=== PATIENT | female | born 1945 | race Caucasian/White ===

== ENCOUNTER 2019-01-11 14:34 | Observation (INO) ==
[2019-01-11 15:29] LABS: EOS% 10.6 % (0.0-10.0); HEMATOCRIT 35.1 % (37.0-47.0); HEMOGLOBIN 11.5 g/dL (12.0-16.0); LYMPH% 25.6 % (20.5-51.1); MCHC 32.8 g/dL (33-37); MCV 85.6 FL (81-99); MONO% 8.4 % (1.7-9.3); MPV 10.1 FL (7.4-10.4); NEUT% 55.1 % (42.2-75.2); PLT 219 X1000 (130-400); RDW 14.8 % (11.5-14.5); WBC 6.67 X1000 (4.8-10.8)
[2019-01-11 15:30] LABS: BASO# 0.02 X1000 (0.0-0.2); BASO% 0.3 % (0.0-0.8); EOS# 0.71 X1000 (0.0-0.7); LYMPH# 1.71 X1000 (1.2-3.4); MONO# 0.56 X1000 (0.11-0.59); NEUT# 3.67 X1000 (1.4-6.5)
[2019-01-11] MEDS ORDERED: D50W SYRINGE IV ONE (15:31)
[2019-01-11] MEDS ORDERED: D5W 500 ML IV ONE (15:42)
[2019-01-11 15:46] LABS: ALB/GLOB RATIO 2.1; ALBUMIN 4.2 g/dL (3.5-5.0); CALCIUM 9.3 mg/dL (8.8-10.2); CREATININE 1.5 mg/dL (0.5-0.9); POTASSIUM 4.1 mmol/L (3.5-5.1); TOTAL BILIRUBIN 0.42 mg/dL (0.20-1.00); TOTAL PROTEIN 6.2 g/dL (6.3-8.3)
--- NOTE | 2019-01-11 16:01 | EKG Report ---
Test Performed on : 01/11/2019 2:42:30 PM Test Reason : weakness Blood Pressure : / mmHG Vent. Rate : 087 BPM Atrial Rate : 087 BPM P-R Int : 120 ms QRS Dur : 080 ms QT Int : 370 ms P-R-T Axes : -71 -35 054 degrees QTc Int : 445 ms Unusual P axis and short [place], probable junctional tachycardia. Left axis deviation Abnormal ECG When compared with ECG of 25-MAR-2013 21:22, Junctional rhythm. has replaced Sinus rhythm. Unconfirmed Result
[2019-01-11] MEDS ORDERED: NS 1,000 ML ONE (16:15)
[2019-01-11] MEDS ORDERED: NS 1,000 ML IV ONE (16:16)
--- NOTE | 2019-01-11 17:00 | Diag Imaging Result Doc PS360 ---
EXAM: CT HEAD W/O CONTRAST INDICATION: r/o stroke TECHNIQUE: This exam was performed using automated exposure control, adjustment of mA or kV according to patient size, and/or use of iterative reconstruction technique. COMPARISON: 03/25/2013 FINDINGS: There is stable mild brain atrophy. There is patchy low attenuation in the periventricular white matter suggesting mild microangiopathy. However, it is slightly more prominent than the previous study. There is no definite acute infarct given the limited sensitivity of CT versus MRI. There is no discrete intracranial mass, mass effect, or intracranial hemorrhage. The surrounding soft tissues and bony structures are essentially unremarkable. IMPRESSION: Mild chronic appearing white matter changes. No definite acute intracranial pathology by CT. Electronically signed by Ernst Neal 01/11/2019 4:58 PM
[2019-01-11] MEDS ORDERED: ASPIRIN PO ONE (17:18)
--- NOTE | 2019-01-11 17:28 | PROVIDER DOCUMENTATION ---
This chart was entered by Yesica Posey Scribe, acting as scribe for Emigdio Amaya MD. HPI-General Adult - General Chief Complaint: Weakness Stated Complaint: STROKE SYMPTOMS Time Seen by Provider: 01/11/19 14:43 Source: patient Allergies/Adverse Reactions: Patient Allergies Allergy/AdvReac Type Severity Reaction Status Date / Time No Known Allergies Allergy Verified 01/11/19 15:28 Home Medications: Home Medication List Medication Instructions Recorded Confirmed Last Taken Type Letrozole [Femara] 2.5 mg PO DAILY 03/28/12 01/11/19 03/24/13 History Multivitamin [Multi-Day Vitamins] 1 each PO DAILY 03/28/12 01/11/19 03/25/13 Hi story Oxymetazoline Nasal [place] [Afrin 03/28/12 03/25/13 Unknown History Nasal [place]] Potassium Chloride [Klor-Con M10] 1 tab PO BID 03/28/12 01/11/19 01/01/19 History Triamcinolone Nasal [place] 120 spray .SEE ORDER DIRECTED 03/28/12 01/11/19 Unknown History [Nasacort Aq Nasal [place]] Famotidine 20 mg PO DAILY 03/29/12 01/11/19 03/24/13 History Metformin [Glucophage] 500 mg PO BID 03/29/12 01/11/19 03/25/13 History Venlafaxine HCl [Venlafaxine HCl 37.5 mg PO DAILY 03/29/12 01/11/19 03/28/12 22:00 History ER] 37.5 ATORVAstatin [Lipitor] 40 mg PO HS #0 tablet 03/27/13 01/11/19 Unknown Rx BENAZEpril [Lotensin] 10 mg PO DAILY #0 tablet 03/27/13 01/11/19 Unknown Rx - History of Present Illness -Gen Adult Nature of Presenting Problems: Pt is 73/F presenting to the ED w/ L sided weakness that started about 30 min. 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 Hx of HTN and DM. She sts that all sx have resolved now Location of Pain/Injury: reports: upper extremity (L sided) Pain Radiation: reports: arm(s) (l arm) Quality of Pain: reports: other (weakness) Severity: reports: moderate Onset/Duration: reports: 1/2 hour ago Timing: reports: gone now Context/Activities at Onset: reports: none Modifying Factors: improves with: nothing Associated Symptoms: reports: denies symptoms, weakness Similar Symptoms Previously?: No Recently seen or treated by another doctor?: No Review of Systems - Adult - REVIEW OF SYSTEMS - ADULT Constitutional: reports: no symptoms reported Eyes: reports: no symptoms reported Ears, Nose, Mouth & Throat: reports: no symptoms reported Cardiovascular: reports: no symptoms reported Respiratory: reports: no symptoms reported Gastrointestinal: denies: abdominal pain, nausea, vomiting Genitourinary: reports: no symptoms reported Musculoskeletal: reports: no symptoms reported Integumentary: reports: no symptoms reported Neurological: reports: no symptoms reported. denies: dizziness/vertigo, headache/migraines Psychiatric: reports: no symptoms reported Endocrine: reports: no symptoms reported Hematologic/Lymphatic: reports: no symptoms reported Allergic/Immunologic: reports: no symptoms reported All Other Systems: Reviewed and Negative Past History - Adult - PAST MEDICAL HISTORY-ADULT Review of Records: reports: Old Records Reviewed, Nursing Assessment Review, Medications Reviewed, Social history reviewed & non-contributory. Major Childhood Illnesses: reports: denies history Cardiovascular: reports: denies history Respiratory: reports: denies history Gastrointestinal: reports: denies history Obstetrical/Gynecological: reports: denies history Genitourinary: reports: denies history Musculoskeletal: reports: denies history Neurological: reports: denies history Psychiatric: reports: denies history Endocrine/Immune: reports: denies history Other Conditions: reports: denies history - SOCIAL HISTORY Smoking: denies, non-smoker Substance Use: none/never Living Situation: family Physical Exam-General - PHYSICAL EXAM-ADULT Initial Vital Signs Reviewed: Yes - CONSTITUTIONAL General Appearance: appears well, alert, no apparent distress, other (pt sts that all sx have resolved at this time.) - EYES Eyes: PERRL/EOMI, pink conjunctivae - HEAD, EARS, NOSE, MOUTH & THROAT HENMT: normocephalic/atraumatic, moist mucous membranes, normal ENT inspection - NECK Neck: supple - RESPIRATORY Respiratory: lungs clear - GASTROINTESTINAL (ABDOMEN) Abdominal Exam: non tender, soft - MUSCULOSKELETAL Back Exam: normal inspection Extremity: normal range of motion, non-tender, normal gait, normal inspection - SKIN Integumentary: normal color, warm/dry - NEUROLOGIC Neurologic: grossly normal - PSYCHIATRIC Psych/Mental Status: normal mood/affect, normal thought content, normal thought process, oriented x 3 Progress - PLAN OF CARE/RESULTS Progress/Plan/Lab Results: Vital Signs - 8 hr 01/11/19 14:35 Temperature 97.4 F L Pulse Rate 91 H Respiratory Rate 16 Blood Pressure 160/77 O2 Sat by Pulse Oximetry 98 Laboratory Results - last 24 hr 01/11/19 01/11/19 15:05 15:14 WBC 6.67 RBC 4.10 L Hgb 11.5 L Hct 35.1 L MCV 85.6 MCH 28.0 MCHC 32.8 L RDW Std Deviation 14.8 H Plt Count 219 MPV 10.1 Immature Gran % (Auto) 0.0 Neut % (Auto) 55.1 Lymph % (Auto) 25.6 [place] % (Auto) 8.4 Eos % (Auto) 10.6 H Baso % (Auto) 0.3 Immature Gran # (Auto) 0.00 Neut # (Auto) 3.67 Lymph # (Auto) 1.71 [place] # (Auto) 0.56 Eos # (Auto) 0.71 H Baso # (Auto) 0.02 POC Glucose 63 L Orders Category Date Time Status CT HEAD W/O CONTRAST [CT] Stat Exams 01/11/19 14:40 Ordered CBC WITH DIFF [HEME] Stat Lab 01/11/19 15:05 Completed COMPREHENSIVE METABOLIC PANEL [CHEM] Stat Lab 01/11/19 15:05 Received TROPONIN T Stat Lab 01/11/19 15:05 Received URINALYSIS [URINALYSIS] Stat Lab 01/11/19 14:43 Uncollected Dextrose 50% Syringe [D50w Syringe] Med 01/11/19 15:31 Discontinued 50 ml IV NOW ONE EKG [EKG] Stat Ther 01/11/19 14:43 Ordered Result Diagrams: 01/11/19 15:05 01/11/19 15:05 - EKG 1 Time of EKG reading by physician:: 14:42 EKG Read and Signed by:: Emigdio Amaya EKG Interpretation (*Must complete 3 of following elements*): Abnormal (Unusual P axis and short [place], probable junctional tachycardia. Left axis deviation. Abnormal) Rate: 87 Rhythm: probable junctional tachycardia [place]: left QRS: normal CO Interval: normal - XRAY 1 XRAY: Bilateral XRAY Study: Chest Impression: Normal (EXAM: CT HEAD W/O CONTRAST INDICATION: r/o stroke TECHNIQUE: This exam was performed using automated exposure control, adjustment of mA or kV according to patient size, and/or use of iterative reconstruction technique. COMPARISON: 03/25/2013 FINDINGS: There is stable mild brain atrophy. There is patchy low attenuation in the periventricular white matter suggesting mild microangiopathy. However, it is slightly more prominent than the previous study. There is no definite acute infarct given the limited sensitivity of CT versus MRI. There is no discrete intracranial mass, mass effect, or intracranial hemorrhage. The surrounding soft tissues and bony structures are essentially unremarkable. IMPRESSION: Mild chronic appearing white matter changes. No definite acute intracranial pathology by CT. Electronically signed by Ernst Neal 01/11/2019 4:58 PM 01/11/191657 Interpreting Physician: Ernst Neal MD Dictated Date/Time: 01/11/193 cc: Emigdio Amaya MD; Jose Padgett MD) - CT/MRI 1 CT Study: Head Impression: Normal, See EMR Report ([facility] - [address] [place] [address], [address] [address] [facility] - [address] [place] [address] Department of Imaging Patient: THOMAS SANTOS Date: 01/11/19#: [id number] : 5ADM Status: [facility]#: [id number] Age/Sex: 73/FRoom/Bed: Loc: ED Ordering Physician: Emigdio Amaya MD Family Physician: Jose Padgett MD Reason for Procedure: r/o stroke Signed EXAM: CT HEAD W/O CONTRAST INDICATION: r/o stroke TECHNIQUE: This exam was performed using automated exposure control, adjustment of mA or kV according to patient size, and/or use of iterative reconstruction technique. COMPARISON: 03/25/2013 FINDINGS: There is stable mild brain atrophy. There is patchy low attenuation in the periventricular white matter suggesting mild microangiopathy. However, it is slightly more prominent than the previous study. There is no definite acute infarct given the limited sensitivity of CT versus MRI. There is no discrete intracranial mass, mass effect, or intracranial hemorrhage. The surrounding soft tissues and bony structures are essentially unremarkable. IMPRESSION: Mild chronic appearing white matter changes. No definite acute intracranial pathology by CT. Electronically signed by Ernst Neal 01/11/2019 4:58 PM 01/11/198 Interpreting Physician: Ernst Neal MD Dictated Date/Time: 1654 cc: Emigdio Amaya MD; Jose Padgett MD) - CONSULTS/PCP/HOSPITALIST Notification #1 *Consult/PCP/Hospitalist*: Xi for Dr López Time Discussed: 17:31 Consult Disposition: Will see in ED, Admit Departure - Departure Date of Disposition Decision: 01/11/19 Time of Disposition Decision: 17:27 DIAGNOSIS: TIA (transient ischemic attack), Renal insufficiency Disposition: ADMITTED INPATIENT 09 Certified Medical Emergency: Emergent Condition: Fair Referrals and Follow-Ups: Jose Pdagett MD [Primary Care Provider] - - Critical Care Note This patient required my direct & personal management of CC.: No Attestation - Physician/ ALEJANDRINA Attestation Patient care was provided by Advanced Practice Provider:: No The physician spent face to face time with patient:: Yes Advanced Practice Provider documentation review:: Supervising physician onsite and consulted in the evaluation and care of this patient. The physician did have a face to face encounter with the patient. This chart was documented by the indicated scribe, (Yesica Posey, Simran) and accurately reflects the services I performed and decisions made by me, Emigdio Amaya MD, as attested by the provider's signature.
[2019-01-11 18:23] LABS: INR 0.93; PROTIME 12.6 Seconds (11.0-16.0); PTT 24.9 Seconds (22.3-41.8)
--- NOTE | 2019-01-11 18:25 | Diag Imaging Result Doc PS360 ---
EXAM: CHEST-1 VIEW INDICATION: possible stroke TECHNIQUE: One view COMPARISON: 03/25/2013 FINDINGS: There is a calcified granuloma at the left lung base and a few small calcified granulomata at the right lung apex. The lungs are grossly clear. There is no discrete pleural fluid collection or pneumothorax. The cardiomediastinal silhouette and central vasculature are grossly unremarkable. IMPRESSION: No evidence of acute pathology by plain radiograph. Electronically signed by Ernst Neal 01/11/2019 6:23 PM
[2019-01-11 18:33] LABS: URINE SOURCE VOIDED
[2019-01-11] MEDS ORDERED: ZOFRAN IV PRN (18:54)
[2019-01-11] MEDS ORDERED: TRIAMCINOLONE SCH (18:54)
[2019-01-11 19:03] LABS: BILIRUBIN URINE NEGATIVE (NEGATIVE); BLOOD URINE TRACE (NEGATIVE); COLOR YELLOW; GLUCOSE URINE 150 mg/dL (NEGATIVE); KETONE URINE NEGATIVE (NEGATIVE); LEUKOCYTES URINE LARGE (NEGATIVE); NITRITE URINE NEGATIVE (NEGATIVE); PROTEIN URINE 50 mg/dL (NEGATIVE); SP GRAVITY URINE 1.015; TURBIDITY URINE HAZY (CLEAR); UROBILINOGEN URINE 2 mg/dL (NORMAL)
[2019-01-11 19:08] LABS: UR EPITHELIAL CELLS <10 /HPF (<10); URINE BACTERIA 4+ /HPF; URINE RBC <10 /HPF (<10); URINE WBC TNTC /HPF (<10)
--- NOTE | 2019-01-11 20:18 | HISTORY AND PHYSICAL ---
PRIMARY CARE PHYSICIAN: Jose Padgett MD CHIEF COMPLAINT: Left-sided weakness and left-sided facial drooping with slurred speech that began approximately 30 minutes prior to arrival, that resolved after arriving to the emergency room. HISTORY OF PRESENTING ILLNESS: This is a 73-year-old female who presents to [facility], with family after she was sitting outside on her porch. Her son was outside with her and noticed that she had left-sided facial drooping, had slurred speech and weakness in her left arm and leg, so he brought her to the emergency room. By the time she arrived to the emergency room her symptoms had resolved. She was given an aspirin 325 mg p.o. x1 in the emergency room. She is not noted at this time to have any deficits or any left-sided facial drooping or slurred speech. We did a CT of her head that showed mild chronic-appearing white matter changes, but no definite acute intracranial pathology by CT. She will be admitted for further evaluation and treatment. PAST MEDICAL HISTORY: TIA, hypertension, diabetes type 2, anxiety, chronic allergic rhinitis and breast cancer. PAST SURGICAL HISTORY: Gastric bypass in 2005, hysterectomy, port placement and removal, and a left mastectomy. FAMILY HISTORY: Reviewed and noncontributory. SOCIAL HISTORY: She currently lives with family. Denies any tobacco, alcohol or illicit drug use. ALLERGIES: She has no known drug allergies. HOME MEDICATIONS: She takes Lipitor 40 mg p.o. at bedtime; benazepril 10 mg p.o. daily, will be held; famotidine 20 mg p.o. daily; Femara 2.5 mg p.o. daily; metformin 500 mg p.o. b.i.d.; multivitamin p.o. daily; potassium 10 mEq p.o. b.i.d.; Nasacort nasal spray daily; venlafaxine 37.5 mg p.o. daily. LABORATORY DATA: White blood cell count of 6.67, hemoglobin 11.5, hematocrit 35.1, platelets 219,000. Sodium 143, potassium 4.1, chloride 101, CO2 is 24, BUN of 19, creatinine 1.5, glucose 80. Troponin was less than 0.010. DIAGNOSTIC DATA: Head CT showed mild chronic-appearing white matter changes. No definite acute intracranial pathology by CT. EKG showed junctional tachycardia at 87 with an unusual P axis and short P-R. REVIEW OF SYSTEMS: She denied any fever, chills, blurred vision, dizziness, chest pain, coughing, shortness of breath. She did have some left-sided facial drooping, slurred speech, left upper and lower extremity weakness. Denied any chest pain, coughing, shortness of breath, abdominal pain, constipation, diarrhea, burning or hurting with urination. PHYSICAL EXAMINATION: On arrival she had a temperature of 97.4 degrees, pulse 91, respirations 16, blood pressure 160/77, saturating 98% on room air. GENERAL: This is a 73-year-old female who is lying in the bed and answers questions appropriately. HEENT: Normocephalic, atraumatic. Normal ENT inspection. Oropharynx and nares are clear. Eyes: Pupils are equal, round and reactive to light and accommodation. Extraocular movements are intact. NECK: Normal inspection. Normal range of motion. LUNGS: Clear to auscultation bilaterally, with equal lung expansion and chest wall movement. HEART: Regular rate and rhythm. No murmurs, rubs or gallops. ABDOMEN: Soft, nontender, nondistended. Bowel sounds are present x4 quadrants. MUSCULOSKELETAL: She had 5/5 strength x4 extremities. NEUROLOGICAL: The cranial nerves 2-12 are grossly intact. No focal neurological deficits are noted. ASSESSMENT: 1. Transient ischemic attack, now resolved. 2. Acute kidney injury. 3. Hypertension. 4. Diabetes type 2. PLAN: She will be admitted to the medical unit. I am going to allow for some permissive hypertension. We will place on telemetry. Check a carotid ultrasound and an echocardiogram in the a.m. We will check a CBC, BMP and a lipid panel in the a.m. Continue home medications as previously identified. Place on SCDs for DVT prophylaxis. Place on diabetic diet. Neurologic checks per protocol. Further orders after seen by attending. Dictated by DEWAYNE Trevino for Jorge Elliott MD cc: DEWAYNE Trevino MD Hiteshri S. Bhavsar, MD
--- NOTE | 2019-01-11 20:29 | HISTORY AND PHYSICAL ---
ADDENDUM: HISTORY OF PRESENT ILLNESS: Ms. Willis was seen today in the emergency department. She presented because of mild facial drooping on the left side of her face and difficulty bringing out her words, which lasted for a few minutes. The son was with her when this happened and he brought her with a concern of possible stroke. Ms. Willis has a history of hypertension, previous CVA, diabetes mellitus, and dyslipidemia. Upon presentation, she was evaluated and was found to have a blood pressure of 160/77. Her physical exam is quite unremarkable with no neurological deficit. Her speech is now back to normal and there is not any asymmetry in the face. Her labs have also been reviewed. CBC is unremarkable, except for mild normocytic anemia. Chemistry shows creatinine of 1.5, patient has a baseline of 1.1. CT scan of the head shows mild chronic-appearing, white matter changes, no acute pathology. A chest x-ray shows no acute pathology. EKG shows a normal sinus rhythm with normal axis, normal individual waves, no ST-segment abnormality, normal QT interval. ASSESSMENT/PLAN: 1. Transient episode of difficult speech associated with mild facial drooping on the left, concerning for transient ischemic attack. The patient currently does not seem to have any neurological deficits. She has a previous history of TIA before and also has risk factors, so we are going to admit her and do a stroke workup. 2. Diabetes mellitus. We are going to discontinue the metformin and start the patient on insulin for now. 3. Hypertension. Controlled. 4. Acute on chronic renal failure. Creatinine is up to 1.5, from a baseline of 1.1. We are going to withhold the LUNA inhibitor, hydrate the patient overnight, and recheck on the labs in the morning. 5. History of breast cancer, status post left breast mastectomy and reconstruction surgery. The patient had chemotherapy and all of the workup. Follows up with Dr. Rand. Please refer to the details of the H P in the chart, which has been dictated by the CV/CVN CV TSC SYSTEM OPERATOR. cc: Jorge Elliott MD
[2019-01-11] MEDS: KLOR-CON PO SCH (20:59)
[2019-01-11] MEDS ORDERED: GLUCOPHAGE PO SCH (21:00)
[2019-01-11] MEDS ORDERED: LIPITOR PO SCH (21:00)
[2019-01-12] MEDS: PEPCID PO SCH ×2 (00:16→08:41)
[2019-01-12] MEDS: TYLENOL PO PRN ×3 (03:08→14:54)
[2019-01-12 07:08] LABS: BASO# 0.01 X1000 (0.0-0.2); BASO% 0.2 % (0.0-0.8); EOS# 0.55 X1000 (0.0-0.7); EOS% 8.3 % (0.0-10.0); HEMOGLOBIN 10.7 g/dL (12.0-16.0); LYMPH# 1.32 X1000 (1.2-3.4); LYMPH% 19.8 % (20.5-51.1); MCH 28.2 PG (27-31); MCHC 32.4 g/dL (33-37); MCV 86.8 FL (81-99); MONO# 0.49 X1000 (0.11-0.59); MONO% 7.4 % (1.7-9.3); MPV 10.1 FL (7.4-10.4); NEUT# 4.28 X1000 (1.4-6.5); NEUT% 64.3 % (42.2-75.2); PLT 182 X1000 (130-400); RDW 14.7 % (11.5-14.5); WBC 6.65 X1000 (4.8-10.8)
[2019-01-12 07:24] LABS: CALCIUM 8.6 mg/dL (8.8-10.2); CREATININE 1.1 mg/dL (0.5-0.9); POTASSIUM 3.6 mmol/L (3.5-5.1)
[2019-01-12] MEDS: KLOR-CON PO SCH (08:41)
[2019-01-12] MEDS ORDERED: THERA M PLUS PO SCH (09:00)
[2019-01-12] MEDS ORDERED: FEMARA PO SCH (09:00)
[2019-01-12] MEDS ORDERED: ASPIRIN PO SCH (09:00)
[2019-01-12] MEDS ORDERED: EFFEXOR XR PO SCH (09:00)
--- NOTE | 2019-01-12 11:00 | Diag Imaging Result Doc PS360 ---
EXAM: MRI BRAIN W/WO CONTRAST 01/12/2019 HISTORY: TIA TECHNIQUE: T1 sagittal and axial and post gadolinium-enhanced axial with coronal reformation, T2, FLAIR, DWI axial and coronal gradient echo. COMMENT: The current study is compared with the previous examination of 03/27/2013. 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 The ventricular system is generally somewhat more distended than it was at the time the previous study. There is periventricular white matter hyperintensity with scattered punctate subcortical and periventricular foci of hyperintensity which are somewhat more numerous than on the previous study. There is no evidence of mass effect bleed or abnormal extra-axial fluid collection. There is no evidence of restricted diffusion. No evidence of abnormal gadolinium enhancement is present. IMPRESSION: Slightly worsened chronic microvascular white matter disease. Increased prominence of the ventricular system which may be related to increasing atrophy. The possibility of normal pressure hydrocephalus cannot be entirely excluded however. Electronically signed by Dwight Wiggins 01/12/2019 10:58 AM
--- NOTE | 2019-01-12 11:02 | Diag Imaging Result Doc PS360 ---
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 Both posterior communicating arteries are patent. Otherwise, there is no evidence of aneurysm or major branch occlusion. Fewer of the peripheral branches of the right middle cerebral artery are visible compared to the left. IMPRESSION: No evidence of major branch occlusion. Electronically signed by Dwight Wiggins 01/12/2019 11:00 AM
--- NOTE | 2019-01-12 11:05 | Diag Imaging Result Doc PS360 ---
EXAM: MRA NECK W/CONT 01/12/2019 HISTORY: TIA TECHNIQUE: Contrast enhanced MRA with 3-D MIPS COMMENT: The common carotid and right brachiocephalic arteries are patent. The left subclavian artery is not well demonstrated proximally and there may be a stenotic lesion distal to the takeoff of the left vertebral artery. No significant abnormality is present in the right internal carotid artery. It is somewhat tortuous. There is an apparent plaque in the proximal left internal carotid artery. This does not appear to be associated with a significant degree of stenosis however correlation with carotid Doppler ultrasound is recommended. IMPRESSION: Atherosclerotic plaque in the proximal left internal carotid artery. Apparent stenosis in the left subclavian artery. Electronically signed by Dwight Wiggins 01/12/2019 11:03 AM
[2019-01-12 11:46] VITALS: BP 181/79
[2019-01-12] MEDS ORDERED: PNEUMOVAX 23 IM ONE (14:43)
--- NOTE | 2019-01-13 07:57 | ECHO REPORT ---
ORDER DATE: 01/12/2019 MEASUREMENTS: 1. Septal thickness 1.1. 2. Left ventricular internal diameter in diastole 4.8. 3. Posterior wall thickness 0.9. 4. Aortic root 3.0. 5. Left atrium 3.6 SUMMARY: 1. Technically difficult study due to limited acoustic window quality. Intravenous echo contrast agent Optison was utilized to enhance endocardial definition. 2. Aortic valve is trileaflet and opens normally on 2-dimensional images. Peak gradient across aortic valve was less than 5 mmHg. Mild mitral annular calcification is demonstrated. There is very mild mitral regurgitation. Tricuspid and pulmonic valves are without evidence of structural abnormality with mild tricuspid regurgitation and trace pulmonic insufficiency. The estimated systolic PA pressure by Doppler is 40 mmHg suggesting mild pulmonary hypertension. The aortic root is normal in size. 3. Normal left ventricular dimensions suggested. Estimated left ejection fraction appears to be at least 60%. No regional wall motion abnormalities are evident. Left atrium, right atrium, right ventricle are normal in size with grossly preserved right ventricular systolic function. 4. No pericardial effusion. 5. Inferior vena cava not well demonstrated. CONCLUSIONS: 1. Technically difficult study. 2. Mild mitral annular calcification with very mild mitral regurgitation. 3. Mild tricuspid regurgitation with mild pulmonary hypertension by Doppler. 4. Estimated left ejection fraction at least 60% without regional wall motion abnormality evident. cc: MD Xi Krishnan CRNP
--- NOTE | 2019-01-13 13:18 | DISCHARGE SUMMARY ---
ADMISSION DATE: 01/11/2019 DISCHARGE DATE: 01/12/2019 DISPOSITION: Home. FOLLOW-UP: Will be with patient's PCP, Dr. Padgett. CONSULTATION DURING THIS ADMISSION: None. INVASIVE PROCEDURES DONE DURING THIS ADMISSION: None. IMAGING STUDIES OF SIGNIFICANCE: 1. A CT scan of the head was done which showed mild chronic appearing white matter changes. A chest x-ray shows no evidence of acute pathology. A brain MRA showed no evidence of major branch occlusion. An MRI of the brain shows slightly worsened chronic microvascular white changes. 2. A neck MRA shows atherosclerotic plaque in the proximal left internal carotid. 3. A Doppler carotid ultrasound shows 0 to 39 stenosis in both carotid of non-hemodynamic significance. ADMISSION DIAGNOSES: 1. Transient episode of difficulty with speech associated with mild facial droop, concerning for TIA. 2. Diabetes mellitus. 3. Hypertension. 4. Acute on chronic renal failure. 5. History of breast cancer. DIAGNOSES AT THE TIME OF DISCHARGE: 1. Transient episode of neurological deficit which has completely resolved with some unremarkable acute findings on an MRI, all consistent with a TIA. Patient is currently neurologically intact. 2. Diabetes mellitus, controlled on insulin. 3. Acute on chronic renal failure. Patient creatinine is back to baseline 1.1. 4. Clinical volume depletion. The patient has been adequately fluid resuscitated. 5. History of breast cancer status post left breast mastectomy and reconstruction surgery, follows up with Dr. Rand. DISCHARGE MEDICATIONS: 1. Multivitamin 1 tab daily. 2. Letrozole 2.5 p.o. daily. 3. Famotidine 20 mg p.o. daily. 4. Metformin 500 b.i.d. 5. Atorvastatin 40 mg p.o. at bedtime. 6. Benazepril 10 mg p.o. daily. 7. Carvedilol 6.25 p.o. b.i.d. PRESENTING COMPLAINT: Left-sided weakness, left facial droop, difficulty talking. HISTORY OF PRESENTING COMPLAINT: Ms. Willis is a 73-year-old female with a history of hypertension, diabetes, previous TIAs, came to the emergency department because of transient episode of slurred speech and left-sided facial drooping. Upon presenting to the emergency department, patient was neurologically intact. However, because of her risk factors, it was deemed necessary admission for stroke workup. HOSPITAL COURSE: Ms. Willis was admitted to the medical floor and imaging studies including an MRI and MRA of the brain and neck were done. All came back without any acute stroke. However, there were chronic changes on the imaging studies. The patient also had a carotid ultrasound which did not show any significant hemodynamic compromising stenosis. This morning, she refers to be doing well. Her daughter in law was at the bedside at the time of the encounter. She denies any neurological complaints. Her current vitals have been reviewed. Blood pressure is 181/79, pulse of 70, respirations 20, temperature 98.0 degrees. Carvedilol has been added to her current regimen for better blood pressure control. She is being discharged in stable condition. Ms. Willis is advised to follow up with her primary care doctor. She is also advised to maintain adequate hydration during the summertime. All the discharge instructions have been discussed with her as well as with her daughter in law. Both of them expressed understanding. Her granddaughter was also at the bedside at the time of the encounter. TIME SPENT: The time spent for discharge is 37 minutes. cc: MD Jose Lundberg MD
== END 2019-01-12 15:27 | disposition home or self-care (01) ==
LOC: 1N 14:34 → ED 14:34
PROVIDERS: ATTEND Internal Medicine
CPT/HCPCS: 70450; 70544; 70548; 70553; 71010; 71045; 80048; 80053; 80061; 81001; 82948; 83721; 84484; 85025; 85610; 85730; 90732; 93005; 93306; 93880; A9270; A9579; C8929; J2405; J7030; J7060; Q9957; XXXXX

== ENCOUNTER 2019-04-03 11:44 | Observation (INO) ==
--- NOTE | 2019-04-03 12:16 | PROVIDER DOCUMENTATION ---
HPI-Musculoskeletal Pain/Inj - GENERAL Chief Complaint: Hip Injury Stated Complaint: Fall Time Seen by Provider: 04/03/19 12:05 Source: patient - HX OF PRESENT ILLNESS-MUSKULOSKELTAL Nature of Presenting Problem: 74 yr old F, presents after a fall. She was walking back up her driveway from the mailbox when her toe caught on something and she fell. She denies LOC despite hitting her head; has a small hematoma, but no abrasion. Able to ambulate with assistance. Severity in ED: mild Onset/Duration: 4-6 hours ago Timing: still present Any recent injury?: No Locality of Occurance: Home Similar Symptoms Previously?: No - FALL INJURY Location of Pain/Injury: reports: head, lower extremity Pain Radiation: reports: no radiation Reason for Fall: reports: tripped Symptoms prior to fall:: reports: none Loss of Consciousness: no loss of consciousness Injury Associated Symptoms: reports: joint pain, trouble walking - LOWER EXTREMITY PAIN/INJURY Lower Extremities Pain: hip: left (pain, swelling), leg: left Review of Systems - Adult - REVIEW OF SYSTEMS - ADULT Constitutional: reports: no symptoms reported Eyes: reports: no symptoms reported Ears, Nose, Mouth & Throat: reports: no symptoms reported Cardiovascular: reports: no symptoms reported Respiratory: reports: no symptoms reported Gastrointestinal: reports: no symptoms reported Musculoskeletal: reports: see HPI, joint pain, joint swelling Neurological: reports: no symptoms reported Psychiatric: reports: no symptoms reported Past History - Adult - PAST MEDICAL HISTORY-ADULT Review of Records: reports: Nursing Assessment Review Endocrine/Immune: reports: Diabetes Diabetes Type: Type 2 Physical Exam-Injury Related - Physical Exam-Injury Related Initial Vital Signs Reviewed: Yes General Appearance: alert, no apparent distress Eyes: PERRL/EOMI Head, Ears, Nose, Mouth & Throat: normocephalic/atraumatic, moist mucous membranes Respiratory: chest non-tender, lungs clear Cardiovascular: regular rate, rhythm Abdominal Exam: normal bowel sounds, non tender, soft Extremity: other (moderate swelling, hematoma of the left thigh, near the hip; tense and full to palpation) Psych/Mental Status: oriented x 3 - Glascow Coma Score Best Eye Response ([place]): (4) open spontaneously Best Verbal Response ([place]): (5) oriented Best Motor Response ([place]): (6) obeys commands Progress - PLAN OF CARE/RESULTS Progress/Plan/Lab Results: Vital Signs - 8 hr 04/03/19 11:57 Temperature 97.4 F L Pulse Rate 96 H Respiratory Rate 18 Blood Pressure 187/110 O2 Sat by Pulse Oximetry 98 Laboratory Results - last 24 hr 04/03/19 04/03/19 04/03/19 18:34 18:40 18:40 WBC 10.98 H RBC 3.52 L Hgb 9.8 L Hct 31.6 L MCV 89.8 MCH 27.8 MCHC 31.0 L RDW Std Deviation 14.8 H Plt Count 261 MPV 9.7 Immature Gran % (Auto) 0.3 Neut % (Auto) 75.3 H Lymph % (Auto) 16.8 L [place] % (Auto) 6.9 Eos % (Auto) 0.5 Baso % (Auto) 0.2 Immature Gran # (Auto) 0.03 Neut # (Auto) 8.27 H Lymph # (Auto) 1.85 [place] # (Auto) 0.76 H Eos # (Auto) 0.05 Baso # (Auto) 0.02 PT INR PTT (Actin FS) Sodium 146 H Potassium 3.9 Chloride 105 Carbon Dioxide 25 Anion Gap 16 BUN 21 Creatinine 1.3 H Estimated GFR/1.73 m2 40 BUN/Creatinine Ratio 16 Glucose 205 H POC Glucose 163 H Calculated Osmolality 299 Calcium 10.1 Total Bilirubin 0.36 AST 23 ALT 24 Alkaline Phosphatase 80 Total Protein 6.3 Albumin 3.7 Globulin 2.6 Albumin/Globulin Ratio 1.4 04/03/19 04/03/19 18:40 18:40 WBC RBC Hgb Hct MCV MCH MCHC RDW Std Deviation Plt Count MPV Immature Gran % (Auto) Neut % (Auto) Lymph % (Auto) [place] % (Auto) Eos % (Auto) Baso % (Auto) Immature Gran # (Auto) Neut # (Auto) Lymph # (Auto) [place] # (Auto) Eos # (Auto) Baso # (Auto) PT 13.1 INR 0.98 PTT (Actin FS) 22.3 Sodium Potassium Chloride Carbon Dioxide Anion Gap BUN Creatinine Estimated GFR/1.73 m2 BUN/Creatinine Ratio Glucose POC Glucose Calculated Osmolality Calcium Total Bilirubin AST ALT Alkaline Phosphatase Total Protein Albumin Globulin Albumin/Globulin Ratio Orders Category Date Time Status Diabetic Diet Diet 04/03/19 19:[address] EXT LOWER LEFT W/O CON [CT] Stat Exams 04/03/19 13:[address] HEAD W/O CONTRAST [CT] Stat Exams 04/03/19 16:19 Completed FOREARM-LEFT [RAD] Stat Exams 04/03/19 16:19 Completed KNEE 3 VIEWS LEFT [RAD] Stat Exams 04/03/19 12:15 Completed SHOULDER-LEFT [RAD] Stat Exams 04/03/19 16:19 Completed XRAY HIP UNILATERAL LT [RAD] Stat Exams 04/03/19 12:15 Completed CBC WITH ELECTRONIC DIFF [HEME] Stat Lab 04/03/19 18:40 Completed COMPREHENSIVE METABOLIC PANEL [CHEM] Stat Lab 04/03/19 18:40 Completed PT [PROTIME WITH INR] [COAG] Stat Lab 04/03/19 18:40 Completed PTT [COAG] Stat Lab 04/03/19 18:40 Completed URINALYSIS W/POSS RFLX CULT [URINALYSIS] Stat Lab 04/03/19 17:52 Uncollected 0.9% Sodium Chloride Inj [Ns] 1,000 ml Med 04/03/19 18:44 Active IV 999 mls/hr Acetaminophen [Tylenol] Med 04/03/19 13:10 Discontinued 1,000 mg PO NOW ONE Ketorolac [Toradol] Med 04/03/19 13:10 Discontinued 60 mg IM NOW ONE 7.5cm x 10 cm hematoma on left thigh - discussed case with Surgery who recommends pt be admitted to have the hematoma monitored; CT Head pending prior to hospitalist accepting admission. CT Head negative, labs unremarkable for acute life-threatening abnormalities; discussed case with Dr. Perez, who accepts for admission. Pt made aware of plan. Result Diagrams: 04/03/19 18:40 04/03/19 18:40 - XRAY 1 XRAY: Left XRAY Study: Shoulder, Humerus Impression: See EMR Report XRAY Interpretation: no acute fracture 2 XRAY: Left XRAY Study: Hip, Knee Impression: See EMR Report XRAY Interpretation: no acute fracture - CT/MRI 1 CT Study: Lower Ext Impression: See EMR Report CT Results: 7.5cmx 10cm hematoma 2 CT Study: Head - CONSULTS/PCP/HOSPITALIST Notification #1 *Consult/PCP/Hospitalist*: Dr. Perez Time Discussed: 19:25 Reason/Comments: monitor hematoma overnight Consult Disposition: Admit Departure - Departure Date of Disposition Decision: 04/03/19 Time of Disposition Decision: 19:38 DIAGNOSIS: Left leg injury Qualifiers: Encounter type: initial encounter Qualified Code(s): S89.92XA - Unspecified injury of left lower leg, initial encounter Disposition: ADMITTED INPATIENT 09 Certified Medical Emergency: Emergent Condition: Fair Referrals and Follow-Ups: Jose Padgett MD [Primary Care Provider] - - Critical Care Note This patient required my direct & personal management of CC.: No Attestation - Physician/ ALEJANDRINA Attestation Patient care was provided by Advanced Practice Provider:: No The physician spent face to face time with patient:: Yes Advanced Practice Provider documentation review:: Supervising physician onsite and consulted in the evaluation and care of this patient. The physician did have a face to face encounter with the patient.
--- NOTE | 2019-04-03 12:36 | Diag Imaging Result Doc PS360 ---
EXAM: KNEE 3 VIEWS LEFT HISTORY: Fall TECHNIQUE: Three views COMPARISON: None. FINDINGS: No fracture. No dislocation. Prominent atherosclerosis. IMPRESSION: No acute bony injury. Electronically signed by Tony Barrera 04/03/2019 12:33 PM
--- NOTE | 2019-04-03 12:37 | Diag Imaging Result Doc PS360 ---
EXAM: XRAY HIP UNILATERAL LT HISTORY: Fall TECHNIQUE: Two views COMPARISON: None. FINDINGS: No fracture. No dislocation. Prominent degenerative changes in the lower lumbar spine. There are surgical clips in the pelvis. Prominent atherosclerosis. IMPRESSION: No acute bony injury. Electronically signed by Tony Barrera 04/03/2019 12:35 PM
[2019-04-03] MEDS ORDERED: TORADOL IM ONE (13:10)
[2019-04-03] MEDS ORDERED: TYLENOL PO ONE (13:10)
--- NOTE | 2019-04-03 15:16 | Diag Imaging Result Doc PS360 ---
EXAM: CT EXT LOWER LEFT W/O CON 04/03/2019 HISTORY: Large Deformity, Fall TECHNIQUE: This exam was performed using automated exposure control, adjustment of mA or kV according to patient size, and/or use of iterative reconstruction technique. COMMENT: There are no apparent bony abnormalities. There is a subcutaneous hematoma superficial to the greater trochanter and gluteal muscles on the left. There are no gas collections. This is at least 7.5 cm in axial dimension and 10 cm in superior-inferior dimension. IMPRESSION: Left subcutaneous hematoma. Electronically signed by Dwight Wiggins 04/03/2019 3:13 PM
--- NOTE | 2019-04-03 16:40 | Diag Imaging Result Doc PS360 ---
EXAM: SHOULDER-LEFT 04/03/2019 HISTORY: Fall TECHNIQUE: AP portable left shoulder two views COMMENT: There is osteophyte formation in the acromioclavicular joint. There is no evidence of fracture or dislocation. There are surgical clips in the axilla. IMPRESSION: No evidence of acute bony disease. Electronically signed by Dwight Wiggins 04/03/2019 4:37 PM
--- NOTE | 2019-04-03 16:40 | Diag Imaging Result Doc PS360 ---
EXAM: FOREARM-LEFT 04/03/2019 HISTORY: Fall TECHNIQUE: Left forearm two views COMMENT: There is no evidence of fracture or dislocation. No other definite bony abnormalities are present. IMPRESSION: No acute bony disease. Electronically signed by Dwight Wiggins 04/03/2019 4:37 PM
--- NOTE | 2019-04-03 17:29 | Diag Imaging Result Doc PS360 ---
EXAM: CT HEAD W/O CONTRAST 04/03/2019 HISTORY: Fall, Trauma to Head TECHNIQUE: This exam was performed using automated exposure control, adjustment of mA or kV according to patient size, and/or use of iterative reconstruction technique. COMMENT: There is abnormal lucency in the periventricular white matter in both frontal lobes. There is no evidence of mass effect, bleed, or extra-axial fluid collection. The calvarium is intact. The visualized paranasal sinuses are clear. Compared to the previous study of 01/11/2019 there has been no significant change in the appearance of the brain. IMPRESSION: Chronic ischemic microvascular disease. No evidence of acute intracranial disease. Electronically signed by Dwight Wiggins 04/03/2019 5:27 PM
[2019-04-03] MEDS ORDERED: NS 1,000 ML IV ONE (18:44)
[2019-04-03 18:59] LABS: BASO# 0.02 X1000 (0.0-0.2); BASO% 0.2 % (0.0-0.8); EOS# 0.05 X1000 (0.0-0.7); EOS% 0.5 % (0.0-10.0); HEMATOCRIT 31.6 % (37.0-47.0); HEMOGLOBIN 9.8 g/dL (12.0-16.0); IMM GRAN# 0.03 X1000 (0.0-0.04); IMM GRAN% 0.3 % (0.0-0.5); LYMPH# 1.85 X1000 (1.2-3.4); LYMPH% 16.8 % (20.5-51.1); MCH 27.8 PG (27-31); MCV 89.8 FL (81-99); MONO# 0.76 X1000 (0.11-0.59); MONO% 6.9 % (1.7-9.3); MPV 9.7 FL (7.4-10.4); NEUT# 8.27 X1000 (1.4-6.5); NEUT% 75.3 % (42.2-75.2); PLT 261 X1000 (130-400); RBC 3.52 XMIL (4.2-5.4); RDW 14.8 % (11.5-14.5); WBC 10.98 X1000 (4.8-10.8)
[2019-04-03 19:04] LABS: INR 0.98; PROTIME 13.1 Seconds (11.0-16.0)
[2019-04-03 19:21] LABS: ALB/GLOB RATIO 1.4; ALBUMIN 3.7 g/dL (3.5-5.0); CALCIUM 10.1 mg/dL (8.8-10.2); CREATININE 1.3 mg/dL (0.5-0.9); POTASSIUM 3.9 mmol/L (3.5-5.1); TOTAL BILIRUBIN 0.36 mg/dL (0.20-1.00); TOTAL PROTEIN 6.3 g/dL (6.3-8.3)
--- NOTE | 2019-04-03 21:15 | GENERAL SURGERY CONSULTATION ---
DATE: 04/03/2019 CHIEF COMPLAINT: Fall. REASON FOR CONSULTATION: Left thigh hematoma. HISTORY OF PRESENT ILLNESS: This is a 74-year-old female who had a fall in her driveway earlier today. She takes an aspirin chronically. She denies loss of consciousness, but notices swelling following of her left hip. She was taken to the ER where imaging did not show a hip fracture, but did demonstrate a large subcutaneous hematoma. I was consulted for evaluation. MEDICAL HISTORY: History of breast cancer. Denies any cardiovascular or pulmonary history. SURGICAL HISTORY: She has had mastectomy. She denies any vascular or orthopedic procedures. She also had a surgical history of gastric bypass. SOCIAL HISTORY: No tobacco, alcohol, or drugs. Her family is here with her. FAMILY HISTORY: Reviewed and noncontributory. REVIEW OF SYSTEMS: Ten point review of system was performed, negative other than what is mentioned in HPI. PHYSICAL EXAMINATION: Vital signs: Temperature is 97.4, pulse 96, blood pressure 187/110, oxygen 98%. She is 131 pounds, 5 foot 3. General: She is alert, in no acute distress. HEENT: There is left forehead ecchymosis, but no deformity. Otherwise, no cervical mass. Cardiovascular: Normal rate. Pulmonary: No increased work of breathing. Abdomen: Soft, nontender, nondistended. Integument: Warm and dry. Psychiatric: Appropriate affect. Neurologic: No gross deficits. No paresthesias. Musculoskeletal: She has left forearm abrasion. She has a large hematoma her left greater trochanteric hip. Peripheral vascular warm well perfused with palpable pedal pulses. No lower extremity edema. LABS AND IMAGING: She had not had any labs obtained this admission. I reviewed her imaging. X- ray of the hip, knee, and left lower extremity CT scan. There is no evidence of fracture, but left lateral thigh hematoma. ASSESSMENT AND PLAN: A 74-year-old female status post fall with large left thigh hematoma. She is on an anti-platelet therapy. I have asked the ER to get a noncontrast scan of her head given the ecchymosis here and a forearm x-ray and to admit to the hospitalist for observation overnight. Suspect ultimately she will benefit from hematoma evacuation, but will monitor in a short term prior to proceeding to the [*] room. She is hemodynamically stable. Her foot is neurovascularly intact. cc: Jeronimo Dempsey MD
[2019-04-03 22:27] LABS: URINE SOURCE CLEAN CATCH
[2019-04-03 22:28] LABS: BILIRUBIN URINE NEGATIVE (NEGATIVE); BLOOD URINE NEGATIVE (NEGATIVE); COLOR YELLOW; GLUCOSE URINE NEGATIVE (NEGATIVE); KETONE URINE NEGATIVE (NEGATIVE); LEUKOCYTES URINE MODERATE (NEGATIVE); NITRITE URINE NEGATIVE (NEGATIVE); PH URINE 5.5; PROTEIN URINE 50 mg/dL (NEGATIVE); SP GRAVITY URINE 1.023; TURBIDITY URINE HAZY (CLEAR); UROBILINOGEN URINE 2 mg/dL (NORMAL)
[2019-04-03 22:31] LABS: UR EPITHELIAL CELLS <10 /HPF (<10); URINE BACTERIA 4+ /HPF; URINE WBC TNTC /HPF (<10)
--- NOTE | 2019-04-03 22:45 | HISTORY AND PHYSICAL ---
PRIMARY CARE PHYSICIAN: Jose Padgett MD CHIEF COMPLAINT: Fall, left hip pain. HISTORY OF PRESENTING ILLNESS: A 74-year-old female with a history of diabetes mellitus type 2, hypertension, hyperlipidemia, and depression, who apparently had a fall earlier today. She states that she lost her balance. She landed on her left hip region. She is brought to the emergency department. She had imaging done, which did not reveal any fracture; however, she had a large hematoma on her left greater trochanter region. Due to her presenting symptoms, it was thought that we will keep her for observation for further evaluation and management. At the time of my examination, patient denied any headache, fever, chills, chest pain, shortness of breath or any weight changes but complained of left hip region pain. PAST MEDICAL HISTORY: Includes diabetes mellitus type 2, diet controlled hypertension, hyperlipidemia, breast cancer and depression. PAST SURGICAL HISTORY: Left mastectomy, gastric bypass, hysterectomy. ALLERGIES: No known drug allergies. CURRENT MEDICATIONS: Atorvastatin 40 mg p.o. at bedtime, benazepril 10 mg p.o. daily, famotidine 20 mg p.o. daily, Femara 2.5 mg p.o. daily, multivitamin 1 tablet daily, venlafaxine 37.5 mg p.o. daily. SOCIAL HISTORY: No history of smoking, alcohol or illicit drug use. FAMILY HISTORY: Positive coronary artery disease in father. REVIEW OF SYSTEMS: Fourteen-point review of systems as listed in HPI. Other systems negative. PHYSICAL EXAMINATION: GENERAL: Cooperative, friendly female. She is resting comfortably now. VITAL SIGNS: Temperature 97.4 degrees, pulse 96, respirations 18, blood pressure 187/110. HEENT: Atraumatic, extraocular movements intact. PERRLA. NECK: No masses. CHEST: Clear to auscultation. CARDIOVASCULAR: Regular rate and rhythm. ABDOMEN: Soft. Positive bowel sounds. EXTREMITIES: A large subcutaneous hematoma on the left hip region. GENITOURINARY: No bladder distention. SKIN: Warm. NEUROLOGIC: Nonfocal. LABORATORIES AND STUDIES: WBC is 10.98, hemoglobin 9.8, hematocrit 31.6, platelets 261,000. Sodium 146, potassium 3.9, chloride 105, CO2 25, BUN is 21, creatinine is 1.3, glucose 205. Lower extremity CT shows left subcutaneous hematoma. ASSESSMENT: A 74-year-old female with a history of diabetes mellitus type 2, hypertension, hyperlipidemia, and depression who apparently had a fall. She somehow lost her balance and landed on her left hip region. She was evaluated in the emergency department. She had imaging done, which did show a large subcutaneous hematoma on the left greater trochanteric region. Due to her presenting symptoms, we will place him for observation for further evaluation and management. 1. Large subcutaneous hematoma on the left greater trochanter region and gluteal region. 2. Diabetes mellitus type 2, diet controlled. 3. Hypertension. 4. Depression. PLAN: 1. We will admit patient to medical floor with telemetry. 2. Continue to monitor the hematoma. 3. Continue supportive care with gentle hydration and pain control. 4. We will monitor blood glucose and put patient on a sliding scale insulin regimen. 5. Monitor blood pressure. Resume antihypertensive agent. 6. We will restart other home medications. 7. We will continue to follow and reassess and make further recommendations based on patient's clinical course. Please note that we will hold all anticoagulations due to her hematoma. cc: Derrick Perez MD
[2019-04-03 22:47] LABS: URINE CASTS NONE SEEN; URINE CRYSTALS NONE SEEN; URINE SMALL ROUND CELLS NONE SEEN; URINE YEAST NONE SEEN
[2019-04-04 06:21] LABS: BASO# 0.01 X1000 (0.0-0.2); BASO% 0.1 % (0.0-0.8); EOS# 0.14 X1000 (0.0-0.7); EOS% 2.1 % (0.0-10.0); HEMATOCRIT 27.5 % (37.0-47.0); HEMOGLOBIN 8.4 g/dL (12.0-16.0); LYMPH# 1.52 X1000 (1.2-3.4); LYMPH% 22.5 % (20.5-51.1); MCH 27.8 PG (27-31); MCHC 30.5 g/dL (33-37); MCV 91.1 FL (81-99); MONO% 7.4 % (1.7-9.3); MPV 9.8 FL (7.4-10.4); NEUT# 4.59 X1000 (1.4-6.5); NEUT% 67.9 % (42.2-75.2); PLT 223 X1000 (130-400); RBC 3.02 XMIL (4.2-5.4); RDW 14.9 % (11.5-14.5); WBC 6.76 X1000 (4.8-10.8)
[2019-04-04 06:54] LABS: CALCIUM 9.4 mg/dL (8.8-10.2); CREATININE 1.5 mg/dL (0.5-0.9); POTASSIUM 3.7 mmol/L (3.5-5.1)
[2019-04-04] MEDS ORDERED: FLU VACCINE IM ONE (08:02)
[2019-04-04] MEDS ORDERED: EFFEXOR XR PO SCH (09:00)
[2019-04-04] MEDS ORDERED: FEMARA PO SCH (09:00)
[2019-04-04] MEDS ORDERED: PEPCID PO SCH (09:00)
[2019-04-04] MEDS ORDERED: THERA M PLUS PO SCH (09:00)
[2019-04-04] MEDS ORDERED: LOTENSIN PO SCH (09:00)
[2019-04-04 12:52] VITALS: BP 191/62
[2019-04-04] MEDS ORDERED: LIPITOR PO SCH (21:00)
--- NOTE | 2019-04-05 04:31 | DISCHARGE SUMMARY ---
ADMISSION DATE: 04/03/2019 DISCHARGE DATE: 04/04/2019 DISPOSITION: Home. FOLLOW-UP: Will be with 1. Dr. Padgett. 2. Dr. Dempsey. CONSULTATION DURING THIS ADMISSION: Surgery was consulted. Patient was seen by Dr. Dempsey. INVASIVE PROCEDURE DONE: During this admission, none. IMAGING STUDIES OF SIGNIFICANCE: 1. Hip x-ray shows no acute bony lesion. 2. Knee x-rays showed no acute bony lesion. 3. Left lower extremity CT scan showed a subcutaneous hematoma. 4. A left forearm x-ray showed no acute bony abnormality. 5. A CT scan of the head showed chronic microvascular changes. No evidence of intracranial pathology. 6. A left shoulder x-ray showed no evidence of bony abnormality. ADMISSION DIAGNOSES: 1. Large subcutaneous hematoma. 2. Diabetes mellitus. 3. Hypertension. 4. Depression. DISCHARGE DIAGNOSIS: 1. Status post mechanical fall resulting in trauma to the left hip. 2. Large subcutaneous hematoma of the left hip due to mechanical fall. 3. Diabetes mellitus, controlled. 4. Hypertension. 5. Situational depression and anxiety. 6. Acute on chronic renal failure. 7. Mild dehydration. DISCHARGE MEDICATIONS: 1. Multivitamin 1 tablet daily. 2. Femara 2.5 mg p.o. daily. 3. Famotidine 20 mg p.o. daily. 4. Venlafaxine 37.5 p.o. daily. 5. Atorvastatin 40 mg p.o. at bedtime. 6. Benazepril 10 mg p.o. daily. 7. Hydrocodone 5 mg q.6 hourly p.r.n. PRESENTING COMPLAINT: Fall, left hip pain. HISTORY OF PRESENTING COMPLAINT: Ms. Willis is a 74-year-old elderly female who had gone out to check on her mailbox, got entangled with her dog outside the home and tripped, fell, sustaining an injury to the left hip. She was immediately not able to get up, did complain of some pain, came to the emergency department, where she was evaluated and imaging studies were done, which did not show any bony abnormality. A CT scan, however, did show a large hematoma. Surgery was consulted. Patient was seen by Dr. Dempsey. HOSPITAL COURSE: Ms. Willis was admitted to the hospital for overnight observation. Her vitals remained stable. She was found to be slightly dehydrated and was hydrated overnight. This morning, she is doing a lot better. The swelling over the left hip has significantly improved. She said she has been evaluated by Surgery early this morning, she has been told that she can go home. From medical standpoint, I think, she is fairly stable to be discharged. She has been advised to maintain adequate oral hydration to correct her mild dehydration and she has been advised to follow up with her primary care doctor. Her creatinine this morning was about 1.5, she normally runs anywhere between 1.1 to 1.5. She has been advised to follow up with her primary care so they can keep an eye on this. Ms. Willis is medically stable and she is being discharged today. All the discharge instructions have been discussed with her. She voiced understanding. DISCHARGE VITAL SIGNS: Blood pressure is 191/62, pulse of 72, respirations 20, temperature is 98.1 degrees. Discharge time 31 minutes cc: MD Jose Lundberg MD R. Tyler Harney, MD MTDD
--- NOTE | 2019-04-05 09:56 | GENERAL SURGERY PROGRESS NOTE ---
DATE: 04/04/2019 SUBJECTIVE: She feels much better. She has no other complaints. Says her left hip feels better. On exam, she has been afebrile. No tachycardia. No increased work of breathing. She has various abrasions and ecchymoses over the course of her body. Her left greater trochanteric hematoma is less tense today, with more prominent ecchymosis, but the skin integrity is good overlying it. She has been able to move and ambulate. We did discuss the possibility of drainage of the hematoma in the next week or 2, depending on how it progresses. I would like to see her in a week in the office. Otherwise, from a surgical standpoint, she is okay to discharge. cc: Jeronimo Dempsey MD
== END 2019-04-04 14:59 | disposition home or self-care (01) ==
LOC: SUPCPDRO → ED 11:44 → 4N 11:44 → SUATTDRO 23:03
PROVIDERS: ATTEND Internal Medicine